=== PATIENT | female | born 1975 | race African-American/Black ===

== ENCOUNTER 2017-10-06 23:46 | Emergency (ER) | payer SELFPAY ==
[~2017-10-06] VITALS: Ht 162.6 cm; Wt 111.1 kg
[2017-10-06] MEDS ORDERED: HYDR-2966 PO (23:48)
[2017-10-06] MEDS ORDERED: OMEP-125 PO (23:48)
--- NOTE | 2017-10-06 23:54 | ER Report ---
History and Physical Time Seen By MD: 23:53 HPI/ROS CHIEF COMPLAINT: Burning chest pain, no vomiting HISTORY OF PRESENT ILLNESS: 42-year-old black female with a history of upper tension and GERD. She is brought in from the shelter with severe acid reflux and vomiting. She describes a burning sensation in her epigastrium radiating to her chest. EMS administered aspirin, Zofran 4 mg nitroglycerin, morphine 5 mg IV with improvement of her symptoms. On arrival. Patient reports feeling better. She states she feels like she is high. She vomits shortly after arrival. REVIEW OF SYSTEMS: Respiratory: No cough, no dyspnea. Cardiovascular: As above Gastrointestinal: As above Musculoskeletal: No back pain. Allergies: Coded Allergies: fish oil (Verified Allergy, Intermediate, rash, 10/07/17) Home Meds Reported Medications Hydrochlorothiazide (HYDROCHLOROTHIAZIDE) 25 Mg Tablet, 1 TAB PO QDAY, TAB 10/06/17 Omeprazole (OMEPRAZOLE) 20 Mg Capsule.dr, 1 CAP PO QDAY, CAP 10/06/17 Reviewed Nurses Notes: Yes Old Medical Records Reviewed: Yes Constitutional Vital Sign - Last 24 Hours 10/06/17 10/06/17 10/06/17 10/07/17 23:51 23:52 23:56 00:00 Temp 99.1 Pulse 106 102 117 Resp 24 26 B/P (MAP) 141/77 131/91 (104) Pulse Ox 96 97 95 O2 Delivery Room Air 10/07/17 10/07/17 10/07/17 10/07/17 00:01 00:06 00:11 00:16 Pulse 109 99 109 100 Resp 8 24 20 7 Pulse Ox 94 96 82 94 10/07/17 10/07/17 10/07/17 10/07/17 00:21 00:30 00:31 00:41 Pulse 96 100 99 Resp 21 14 B/P (MAP) 131/99 (110) Pulse Ox 96 96 97 10/07/17 10/07/17 00:55 00:56 Pulse 91 B/P (MAP) 122/110 (114) Pulse Ox 95 Physical Exam General Appearance: The patient is alert, has no immediate need for airway protection and no current signs of toxicity. Vital signs stable, afebrile, pulse ox normal, moderate distress HEENT: Pupils equal and round no injection. Respiratory: Chest is non tender, lungs are clear to auscultation. Cardiac: regular rate and rhythm. No chest wall tenderness Gastrointestinal: Abdomen is soft mild epigastric tenderness, no masses, bowel sounds normal. Musculoskeletal: Neck: Neck is supple and non tender. No JVD, no lymphadenopathy Extremities have full range of motion and are non tender. No edema, no calf tenderness Skin: No rashes or lesions. DIFFERENTIAL DIAGNOSIS: After history and physical exam differential diagnosis was considered for chest pain including but not limited to myocardial ischemia, pericarditis pulmonary embolus, chest wall pain, GERD, pleural inflammation and pulmonary infectious causes. Medical Decision Making Data Points Result Diagram: 10/06/17 2348 10/06/17 2348 Laboratory Hematology Test 10/06/17 23:48 10/07/17 00:10 Red Blood Count 5.06 M/uL (4.17-5.56) Mean Corpuscular Volume 89.9 fL (80.0-96.0) Mean Corpuscular Hemoglobin 30.2 pg (26.0-33.0) Mean Corpuscular Hemoglobin Concent 33.6 g/dL (32.0-36.0) Red Cell Distribution Width 14.2 % (11.5-14.5) Mean Platelet Volume 8.8 fL (7.2-11.1) Neutrophils (%) (Auto) 34.0 % (39.4-72.5) Lymphocytes (%) (Auto) 51.7 % (17.6-49.6) Monocytes (%) (Auto) 11.8 % (4.1-12.4) Eosinophils (%) (Auto) 1.4 % (0.4-6.7) Basophils (%) (Auto) 1.1 % (0.3-1.4) Nucleated RBC Relative Count (auto) 0.0 /100WBC Neutrophils # (Auto) 4.1 K/uL (2.0-7.4) Lymphocytes # (Auto) 6.2 K/uL (1.3-3.6) Monocytes # (Auto) 1.4 K/uL (0.3-1.0) Eosinophils # (Auto) 0.2 K/uL (0.0-0.5) Basophils # (Auto) 0.1 K/uL (0.0-0.1) Nucleated RBC Absolute Count (auto) 0.00 K/uL Peripheral Blood Smear Yes Y/N Sodium Level 139 mmol/L (137-145) Potassium Level 3.2 mmol/L (3.5-5.0) Chloride Level 97 mmol/L (98-107) Carbon Dioxide Level 28 mmol/L (22-31) Blood Urea Nitrogen 13 mg/dl (7-18) Creatinine 1.00 mg/dl (0.52-1.04) Glomerular Filtration Rate Calc > 60.0 Random Glucose 108 mg/dl (75-110) Calcium Level 9.5 mg/dl (8.4-10.2) Total Bilirubin 0.4 mg/dl (0.2-1.3) Aspartate Amino Transf (AST/SGOT) 30 U/L (0-35) Alanine Aminotransferase (ALT/SGPT) 47 U/L (0-56) Alkaline Phosphatase 113 U/L (0-126) Troponin I < 0.012 ng/ml B-Type Natriuretic Peptide < 5 pg/ml (0-100) Total Protein 8.9 gm/dl (6.3-8.2) Albumin 4.4 g/dl (3.5-5.0) Amylase Level 110 U/L (0-110) Lipase 139 U/L (23-300) D-Dimer Quantitative (PE/DVT) 0.34 ug/ml (0-0.50) Chemistry Test 10/06/17 23:48 10/07/17 00:10 White Blood Count 11.9 k/uL (4.5-11.0) Red Blood Count 5.06 M/uL (4.17-5.56) Hemoglobin 15.3 g/dL (12.0-16.0) Hematocrit 45.4 % (34.0-47.0) Mean Corpuscular Volume 89.9 fL (80.0-96.0) Mean Corpuscular Hemoglobin 30.2 pg (26.0-33.0) Mean Corpuscular Hemoglobin Concent 33.6 g/dL (32.0-36.0) Red Cell Distribution Width 14.2 % (11.5-14.5) Platelet Count 313 K/uL (150-450) Mean Platelet Volume 8.8 fL (7.2-11.1) Neutrophils (%) (Auto) 34.0 % (39.4-72.5) Lymphocytes (%) (Auto) 51.7 % (17.6-49.6) Monocytes (%) (Auto) 11.8 % (4.1-12.4) Eosinophils (%) (Auto) 1.4 % (0.4-6.7) Basophils (%) (Auto) 1.1 % (0.3-1.4) Nucleated RBC Relative Count (auto) 0.0 /100WBC Neutrophils # (Auto) 4.1 K/uL (2.0-7.4) Lymphocytes # (Auto) 6.2 K/uL (1.3-3.6) Monocytes # (Auto) 1.4 K/uL (0.3-1.0) Eosinophils # (Auto) 0.2 K/uL (0.0-0.5) Basophils # (Auto) 0.1 K/uL (0.0-0.1) Nucleated RBC Absolute Count (auto) 0.00 K/uL Peripheral Blood Smear Yes Y/N Glomerular Filtration Rate Calc > 60.0 Calcium Level 9.5 mg/dl (8.4-10.2) Total Bilirubin 0.4 mg/dl (0.2-1.3) Aspartate Amino Transf (AST/SGOT) 30 U/L (0-35) Alanine Aminotransferase (ALT/SGPT) 47 U/L (0-56) Alkaline Phosphatase 113 U/L (0-126) Troponin I < 0.012 ng/ml B-Type Natriuretic Peptide < 5 pg/ml (0-100) Total Protein 8.9 gm/dl (6.3-8.2) Albumin 4.4 g/dl (3.5-5.0) Amylase Level 110 U/L (0-110) Lipase 139 U/L (23-300) D-Dimer Quantitative (PE/DVT) 0.34 ug/ml (0-0.50) Coagulation Test 10/07/17 00:10 D-Dimer Quantitative (PE/DVT) 0.34 ug/ml EKG/Imaging EKG Interpretation 12 lead EK Rhythm: normal sinus rhythm [place]: normal QRS: normal ST segments: normal,, diffuse nonspecific ST and T-wave Imaging X-ray: Single view portable chest x-ray was obtained. I viewed the images myself on the PACS system. My interpretation of the images is: No infiltrate, no effusion, normal mediastinum. The radiologist interpretation had no clinically significant variation from this interpretation. ED Course/Re-evaluation Clinical Indication for ER IV: IV Access ED Course Patient was admitted to an examination room. H&P was done. The differential diagnoses was considered. On clinical examination. Patient has burning epigastric pain and vomiting. She has a history of hypertension. An EKG shows no evidence of ischemia. Diagnostic studies show normal troponin, normal d- dimer. Patient's treated symptomatically with IV Protonix, Toradol and a GI cocktail. On reevaluation, her symptoms are much improved. She is discharged back to shelter. She is advised to continue taking her acid reducers. Patient advised to follow-up with her primary care. Upon returning home to [place]. Decision to Disposition Date: Oct 07, 2017 Decision to Disposition Time: 00:56 Depart Departure Latest Vital Signs Vital Signs Date Time Temp Pulse Resp B/P (MAP) Pulse Ox O2 Delivery O2 Flow Rate FiO2 10/07/17 00:56 91 95 10/07/17 00:55 122/110 (114) 10/07/17 00:41 14 10/06/17 23:52 99.1 Room Air Impression: Primary Impression: Gastroesophageal reflux disease Additional Impressions: Hypertension Vomiting Condition: Improved Disposition: [facility] TO USP/CORRECTIONAL F Patient Instructions: Gastroesophageal Reflux Disease (ED) Additional Instructions: Follow-up with your primary care upon returning home Problem Qualifiers Primary Impression: Gastroesophageal reflux disease Esophagitis presence: esophagitis presence not specified Qualified Codes: K21.9 - Gastro-esophageal reflux disease without esophagitis Additional Impressions: Hypertension Hypertension type: essential hypertension Qualified Codes: I10 - Essential ( primary) hypertension Vomiting Vomiting type: unspecified Vomiting Intractability: unspecified Nausea presence: unspecified Qualified Codes: R11.10 - Vomiting, unspecified LIV MURO DO Oct 06, 2017 23:54
[2017-10-06] MEDS ORDERED: PROMETHAZINE 25 MG/ML 1 ML AMP IVP ONE (23:55)
[2017-10-07 00:05] LABS: PLATELET COUNT, AUTOMATED 313 K/uL (150-450)
[2017-10-07] MEDS ORDERED: LIDOCAINE 2% VISC SLN 15ML UDC PO ONE (00:25)
[2017-10-07] MEDS ORDERED: PANTOPRAZOLE SOD(*)40 MG VIAL 80 MG in NS(*) 0.9% 100 ML BAG 100 ML IVPB ONE (00:25)
[2017-10-07] MEDS ORDERED: MAG HYD/AL HYD/SIMETH 30ML UDC PO ONE (00:25)
--- NOTE | 2017-10-07 00:44 | EKG ---
[place] [facility] [place]: JANI SANTIAGO : [id number] MR: [id number] V: [id number] EXAM DATE: ORDERING PHYSICIAN: LIV MURO TECHNOLOGIST: Mekhi Pond Reason : Blood Pressure : / mmHG Vent. Rate : 113 BPM Atrial Rate : 113 BPM P-R Int : 146 ms QRS Dur : 072 ms QT Int : 322 ms P-R-T Axes : 065 045 024 degrees QTc Int : 441 ms Sinus tachycardia Possible Left atrial enlargement Nonspecific ST abnormality Abnormal ECG No previous ECGs available Confirmed by FRANCISCA WOODS ([id number]) on 10/07/2017 6:41:09 AM Referred By: Confirmed By:FRANCISCA WOODS
--- NOTE | 2017-10-07 00:50 | RADIOLOGY IMAGING REPORT ---
FACILITY: [facility] - [place] PATIENT NAME: Matty Bull : 1975 MR: [id number] V: [id number] EXAM DATE: ORDERING PHYSICIAN: LIV MURO TECHNOLOGIST: Location: [facility] [place] Patient: Matty Bull : 1975 Visit/Account:[id number] Date of Sevice: 10/06/2017 CHEST SINGLE AP 10/06/2017 23:54 hours. HISTORY: Chest pain. COMPARISON: None. TECHNIQUE: Portable AP view of the chest. FINDINGS: Tubes/lines/hardware: None. Pulmonary: There is minimal left basilar atelectasis. Right lung is clear. There is no pneumothorax o r pleural effusion. Cardiomediastinal: Cardiac and mediastinal silhouettes are within normal limits. Bones/soft tissues: No acute osseous abnormality. The visible abdomen is normal. IMPRESSION: 1. No acute cardiopulmonary process. Report Dictated By: Marianne Rivers at 10/07/2017 12:45 AM Report E-Signed By: Marianne Rivers at 10/07/2017 12:46 AM WSN:[id number]
[2017-10-07 00:55] VITALS: BP 122/110
== END 2017-10-07 01:10 ==
LOC: ER 23:52
DX: K21.9 Gastro-esophageal reflux disease without esophagitis (principal); I10 Essential (primary) hypertension; R11.10 Vomiting, unspecified; R00.0 Tachycardia, unspecified
CPT/HCPCS: 71045; 82150; 83690; 83880; 84484; 85025; 85379; 93005; 96365; 96375; 99284; C9113; J2550; J7050; 82040; 82247; 82310; 82374; 82435; 82565; 82947; 84075; 84132; 84155; 84295; 84450; 84460; 84520

== ENCOUNTER → 2017-10-06 | Outpatient (CLI) | payer SELFPAY ==
[~2017-10-06] MED LIST: HYDR-2966 PO; OMEP-125 PO
== END ==
LOC: AMB 23:22
PROVIDERS: ATTEND Nurse Practitioner
DX: R07.89 Other chest pain (principal); R06.02 Shortness of breath; R00.0 Tachycardia, unspecified; I10 Essential (primary) hypertension; R11.2 Nausea with vomiting, unspecified
CPT/HCPCS: A0425; A0427